=== PATIENT | male | born 1975 | race Caucasian/White ===

== ENCOUNTER 2017-05-10 12:55 | Inpatient (IN) ==
[2017-05-10] MEDS ORDERED: NITROGLYCERIN 0.4 MG SUBLINGUAL TABLET SL PRN (13:06)
[2017-05-10] MEDS ORDERED: ASPIRIN 81 MG CHEWABLE TABLET PO ONE (13:06)
--- NOTE | 2017-05-10 13:06 | Emergency Department Report ---
Asthma HPI - General Stated Complaint: Heart issues. sent by Dr Fairchild Time Seen by Provider: 05/10/17 13:05 Source: patient Mode of arrival: ambulatory Limitations: no limitations - History of Present Illness HPI Narrative: Patient is a 42-year-old male presents the ER for evaluation of chest tightness and shortness of breath. Patient is a 216 kg male, history of hypertension no history of smoking no cholesterol issues no prior heart issues. Patient stopped taking his blood pressure medication approximately 4 months ago due to financial issues. Patient's been doing relatively well at home, yesterday morning patient developed chest tightness and shortness of breath on exertion. This is waxed and waned whenever patient attempts to ambulate, goes away whenever he rests. Patient was primary medical doctor's office today was found to be hypoxic after ambulation although oxygen saturations did go up on rest, she was complaining of chest tightness at that time EKG showed a sinus tach rate of 102, no acute ST changes. Given the patient's totality of symptoms, as well as hypertension it was felt patient would be better served being evaluated in the emergency department. MD complaint: shortness of breath Onset (ago): day(s) Severity: severe - Related Data Home Medications Medication Instructions Recorded Confirmed HydroCHLOROthiazide [Hydrodiuril] 25 mg PO DAILY 05/10/17 05/10/17 Lisinopril [Prinivil] 40 mg PO DAILY 05/10/17 05/10/17 Tamsulosin [Flomax] 0.4 mg PO HS 05/10/17 05/10/17 guaiFENesin [Mucinex] 600 mg PO Q12H PRN 05/10/17 05/10/17 Allergies Allergy/AdvReac Type Severity Reaction Status Date / Time No Known Allergies Allergy Verified 05/10/17 13:07 Review of Systems Constitutional: Denies: fever, weakness ENT: Denies: throat pain, dental pain Cardiovascular: Reports: chest pain, dyspnea on exertion. Denies: palpitations Respiratory: Reports: dyspnea. Denies: cough, wheezes Gastrointestinal: Denies: abdominal pain, nausea, vomiting Genitourinary: Denies: dysuria, frequency Integumentary: Denies: alopecia, change in hair Neurological: Denies: headache, weakness, numbness Psychiatric: Denies: anxiety, depression Hematological/Lymphatic: Denies: easy bleeding PFSH Patient Stated Medical History Hypertension Yes Other Cardiology Yes: edema Clinic Medical History (Last Updated 04/13/17 @ 13:39 by Levon Gomez RN) Benign hypertension (Chronic Medical) Overactive bladder (Chronic Medical) Prediabetes (Chronic Medical) - Social History Smoking status: Never smoker Substance use type: does not use Alcohol intake frequency: does not drink Physical Exam - Limitations Limitations: no limitations - General General appearance: alert, in no apparent distress - Eye Eye exam: Present: PERRL, EOMI - ENT ENT exam: Present: normal oropharynx, mucous membranes moist, TM's normal bilaterally - Neck Neck exam: Present: full ROM, trachea midline - Chest Chest inspection: Present: symmetric chest wall rise. Absent: tenderness - Respiratory Respiratory exam: Present: normal lung sounds bilaterally. Absent: respiratory distress, wheezes, stridor - Cardiovascular Cardiovascular exam: Present: regular rate, tachycardia, normal heart sounds - Abdominal Exam Abdominal exam: Present: soft, normal bowel sounds. Absent: distention, tenderness - Skin Skin exam: Present: warm, dry - Neurological Exam Neurological exam: Present: alert, oriented X3 - Psychiatric Psychiatric exam: Present: normal affect, normal mood Course Vital Signs Temperature 98.0 F 05/10/17 12:56 Pulse Rate 125 H 05/10/17 12:56 Respiratory Rate 36 H 05/10/17 12:56 Blood Pressure 201/107 H 05/10/17 12:56 Pulse Oximetry 66 L 05/10/17 12:56 Temperature 98.0 F 05/10/17 12:56 Pulse Rate 114 H 05/10/17 15:00 Respiratory Rate 24 05/10/17 15:00 Blood Pressure 174/106 H 05/10/17 15:00 Pulse Oximetry 96 05/10/17 15:00 Dyspnea - MDM Narrative Medical decision making narrative: Acute [place] - Differential Diagnosis Differential diagnosis: Likely: COPD exacerbation - Medical Records Attestation: I reviewed the patient's medical records. - Lab Data Attestation: I reviewed the patient's lab results. Result diagrams: 05/10/17 13:24 05/10/17 13:24 Lab Results 05/10/17 05/10/17 05/10/17 Range/Units 13:24 13:24 13:24 WBC 11.0 (4.5-11.0) T/MM3 RBC 5.37 (4.50-5.90) M/MM3 Hgb 15.1 (13.5-17.5) GM/DL Hct 47.0 (41-53) % MCV 87.5 (80-100) UM3 MCH 28.1 (26-34) UUG MCHC 32.1 (31-37) GM/DL RDW Std Deviation 43.8 (36.9-50.2) FL Plt Count 228 (130-400) T/MM3 MPV 9.0 L (9.4-12.4) UM3 Immature Gran % (Auto) 0.7 H (0.0-0.5) % Neut % (Auto) 72.0 H (33-66) % Lymph % (Auto) 20.3 L (23-45) % [place] % (Auto) 5.7 (0-9.0) % Eos % (Auto) 0.8 (0-4) % Baso % (Auto) 0.5 (0-2) % Neut # (Auto) 7.9 H (1.8-7.7) T/MM3 Lymph # (Auto) 2.2 (1-4.8) T/MM3 [place] # (Auto) 0.6 (0-0.8) T/MM3 Eos # (Auto) 0.1 (0-0.5) T/MM3 Baso # (Auto) 0.1 (0-0.2) T/MM3 Abs Immat Gran (auto) 0.08 H (0.00-0.03) T/MM3 D-Dimer 1921 H (0-230) NG/ML Turbidity < 20 (0-20) Sodium 146 H (134-144) MEQ/L Potassium 3.7 (3.6-5) MEQ/L Chloride 103 (98-107) MEQ/L Carbon Dioxide 32 H (22-30) MEQ/L Anion Gap 11 (5-15) MEQ/L BUN 14.0 (9-20) MG/DL Creatinine 0.9 (0.8-1.5) MG/DL GFR Calculation 93 BUN/Creatinine Ratio 16 (6-26) RATIO Glucose 114 H (75-110) MG/DL Calculated Osmolality 283 H (261-280) MOSM/KG Calcium 9.7 (8.4-10.2) MG/DL Total Bilirubin 0.90 (0.20-1.30) MG/DL Icterus Index < 2 (0-7) AST 31 (17-59) U/L ALT 49 (21-72) U/L Alkaline Phosphatase 116 (38-126) U/L Troponin I 0.107 (0-0.12) ng/ml B-Natriuretic Peptide 1170 H (0-175) pg/mL Total Protein 8.7 H (6.3-8.2) G/DL Albumin 4.4 (3.5-5.0) G/DL Globulin 4.3 H (2.4-3.6) G/DL Albumin/Globulin Ratio 1.0 L (1.1-2.2) RATIO Specimen Hemolysis < 15 (0-25) - EKG Data EKG #1 EKG attestation: Yes: I reviewed and interpreted this EKG. EKG shows normal: sinus rhythm Rate [ED.COU.EKR]: tachycardia Rhythm: NSR [place]/QRS: normal When compared to previous EKG there are: no significant changes Disposition Clinical Impression: Pulmonary embolism Qualifiers: Pulmonary embolism type: other Chronicity: acute Disposition: 02 To [facility] [place] Care Condition: Stable Prescriptions: No Action Tamsulosin [Flomax] 0.4 mg PO HS guaiFENesin [Mucinex] 600 mg PO Q12H PRN PRN Reason: Prn Orders HydroCHLOROthiazide [Hydrodiuril] 25 mg PO DAILY Lisinopril [Prinivil] 40 mg PO DAILY Referrals: Italo Restrepo MD [Family Provider] - Time of Disposition: 15:16 - Seen By: physician
--- OUTSIDE RECORDS SUMMARY | 2017-05-10 13:15 | External Medical Summary | Referral Summary ---
:1975 Author Organization [facility] [place] [phone] Care Team Providers Name Role Phone Italo Restrepo Primary Care Physician Encounter VC Date(s): 01/21/15 - 01/21/15 [facility] [place] [phone] Discharge Diagnosis: Benign hypertension Discharge Disposition: 01-Home or Self Care Attending Physician: Italo Restrepo MD Admitting Physician: Italo Restrepo MD Vital Signs Most recent to oldest [Reference Range]: 1 Temperature Tympanic [36.6-38.1 degC] 36.8 degC (01/21/15 2:44 PM) Peripheral Pulse Rate [60-100 bpm] 84 bpm (01/21/15 2:44 PM) Respiratory Rate [14-20 br/min] 18 br/min (01/21/15 2:44 PM) Blood Pressure [90-140/60-90 mmHg] 150/86 mmHg *HI* (01/21/15 2:44 PM) Problem List Condition Effective Dates Status Health Status Informant Benign hypertension(Confirmed) Active Morbid obesity(Confirmed) Active patient Allergies, Adverse Reactions, Alerts No Known Medication Allergies Medications lisinopril-hydrochlorothiazide 20 mg-12.5 mg oral tablet 2 tabs, Oral, Daily, # 60 tabs, 11 Refill(s), Pharmacy: [id number] Start Date: 01/21/15 Stop Date: 01/16/16 Status: Ordered Results No data available for this section Immunizations No data available for this section Procedures No data available for this section Social History Social History Type Response Smoking Status Never smoker Assessment and Plan Extracted from: Title: Office Visit Note Author: Italo Restrepo MD Date: 01/21/15 Assessment/Plan Benign hypertension Plan:I want to discontinue the [id number] mg a day and start on lisinopril/HCTZ20/12.5 - 2 tablets daily. Follow-up in 6 weeks. The me know if you're having any pro blemswith that medication. We discussed the need to find a new primary care physician. Orders: lisinopril-hydrochlorothiazide, 2 tabs, Oral, Daily, # 60 tabs, 11 Refill(s), Pharmacy: [id number]
--- OUTSIDE RECORDS SUMMARY | 2017-05-10 13:15 | External Medical Summary | Referral Summary ---
:1975 Author Organization [facility] [place] [phone] Care Team Providers Name Role Phone Frank Hebert Primary Care Physician Encounter VC Date(s): 10/21/15 - 10/21/15 [facility] [place] [phone] [place] Discharge Diagnosis: Morbid obesity Discharge Diagnosis: Prediabetes Discharge Diagnosis: Benign hypertension Discharge Diagnosis: Overactive bladder Discharge Diagnosis: Need for vaccination Discharge Disposition: 01-Home or Self Care Attending Physician: Leatha Ponce APRN Admitting Physician: Leatha Ponce APRN Vital Signs Most recent to oldest [Reference Range]: 1 Temperature Tympanic [36.6-38.1 degC] 36.4 degC *LOW* (10/21/15 8:25 AM) Peripheral Pulse Rate [60-100 bpm] 88 bpm (10/21/15 8:25 AM) Respiratory Rate [14-20 br/min] 16 br/min (10/21/15 8:25 AM) Blood Pressure [90-140/60-90 mmHg] 164/106 mmHg *HI* (10/21/15 8:25 AM) Problem List Condition Effective Dates Status Health Status Informant Benign hypertension(Confirmed) Active Morbid obesity(Confirmed) Active patient Allergies, Adverse Reactions, Alerts No Known Medication Allergies Medications Flomax 0.4 mg oral capsule 0.4 mg 1 caps, Oral, Bedtime (once a day), # 90 caps, 0 Refill(s), Pharmacy: [id number],1 caps Oral Bedtime (once a day) Start Date: 10/21/15 Status: Orderedlisinopril-hydrochlorothiazide 20 mg-12.5 mg oral tablet 2 tabs, Oral, Daily, # 60 tabs, 11 Refill(s), Pharmacy: [id number] Start Date: 01/21/15 Stop Date: 01/16/16 Status: Orderedphentermine 37.5 mg oral tablet 37.5 mg 1 tabs, Oral, Daily, # 30 tabs, 0 Refill(s) Start Date: 10/21/15 Status: Ordered Results Chemistry Most recent to oldest [Reference Range]: 1 Sodium Lvl [135-144 mEq/L] 141 mEq/L (10/21/15 9:15 AM) Potassium Lvl [3.5-5.2 mEq/L] 4.8 mEq/L (10/21/15 9:15 AM) Chloride [99-111 mEq/L] 102 mEq/L (10/21/15 9:15 AM) CO2 [23-31 mEq/L] 31 mEq/L (10/21/15 9:15 AM) AGAP [3-20] 8 (10/21/15 9:15 AM) BUN [9-21 mg/dL] 14 mg/dL (10/21/15 9:15 AM) Glucose Lvl [70-99 mg/dL] 110 mg/dL *HI* (10/21/15 9:15 AM) Creatinine Lvl [0.72-1.25 mg/dL] 0.78 mg/dL (10/21/15 9:15 AM) eGFR [>60 mL/min] >60 mL/min 1 (10/21/15 9:15 AM) Calcium Lvl [8.9-10.5 mg/dL] 9.2 mg/dL (10/21/15 9:15 AM) Albumin Lvl [3.5-5.0 gm/dL] 4.0 gm/dL (10/21/15 9:15 AM) Total Protein [6.1-7.7 gm/dL] 7.2 gm/dL 2 (10/21/15 9:15 AM) Globulin [1.8-4.0 gm/dL] 3.2 gm/dL (10/21/15 9:15 AM) ALT [0-55 U/L] 70 U/L *HI* (10/21/15 9:15 AM) AST [5-34 U/L] 45 U/L 3 *HI* (10/21/15 9:15 AM) Alk Phos [40-150 U/L] 93 U/L (10/21/15 9:15 AM) Bili Total [0.2-1.2 mg/dL] 1.1 mg/dL (10/21/15 9:15 AM) Chol [0-199 mg/dL] 151 mg/dL (10/21/15 9:15 AM) Trig [0-149 mg/dL] 124 mg/dL (10/21/15 9:15 AM) HDL [40-84 mg/dL] 46 mg/dL (10/21/15 9:15 AM) LDL [0-130 mg/dL] 80 mg/dL (10/21/15 9:15 AM) VLDL Cholesterol [0-28 mg/dL] 25 mg/dL (10/21/15 9:15 AM) Cardiac Risk [0.0-5.7] 3.3 (10/21/15 9:15 AM) TSH with Reflex Free T4 [0.35-4.94] 2.48 (10/21/15 9:15 AM) Hgb A1c [4.1-5.6 %] 6.1 % *HI* (10/21/15 9:15 AM) eAvg Glucose 128.4 mg/dL (10/21/15 9:15 AM) 1Result Comment: Multiply eGFR results by 1.21 for race.2Result Comment: Please note new reference range for adult Protein.3Result Comment: Specimen slightly hemolyzed. LDH, AST and Direct Bilirubin may be affected.Urinalysis Most recent to oldest [Reference Range]: 1 UA Color Yellow (10/21/15 9:19 AM) UA Appear Clear (10/21/15 9:19 AM) UA pH [5.0-8.0] 6.0 (10/21/15 9:19 AM) UA Leuk Est [Negative] Negative (10/21/15 9:19 AM) UA Nitrite [Negative] Negative (10/21/15 9:19 AM) UA Protein [Negative] Negative (10/21/15 9:19 AM) UA Glucose [Negative] Negative (10/21/15 9:19 AM) UA Ketones [Negative] Negative (10/21/15 9:19 AM) UA Urobilinogen [<=1.0 mg/dL] 0.2 mg/dL (10/21/15 9:19 AM) UA Bili [Negative] Negative (10/21/15 9:19 AM) UA Blood [Negative] Negative (10/21/15 9:19 AM) UA Spec Grav [1.003-1.030] 1.025 (10/21/15 9:19 AM) Type Clean Catch (10/21/15 9:19 AM) Immunizations Vaccine Date Refusal Reason tetanus/diphth/pertuss (Tdap) adult/adol 10/21/15 pneumococcal 23-polyvalent vaccine 10/21/15 Procedures Procedure Date Related Diagnosis Body Site Collection of venous blood by venipuncture 10/21/15 Social History Social History Type Response Smoking Status Never smoker Assessment and Plan Extracted from: Title: Office Visit Note-wt Author: Leatha Ponce APRN Date: 10/21/15 Assessment/Plan 1.Benign hypertension Restart lisinopril/hydrochlorothiazide. Requested check his blood pressures periodically. Goal blood pressures less than 140/90. Labs as ordered. Due for Boostrix and pneumococcal vaccine. Counseled on Boostrix. Given by nursing. Ordered: Comprehensive Metabolic Panel Lipid Panel TSH with Reflex Free T4 2.Morbid obesity We spent quite a time discussing weight loss treatment options. Information provided for [facility]. Encouraged him to strongly consider that. He does n ot have money now to consider bariatric surgery. Start phentermine 37.5 mg dailyas he is working toward theinitiation of the weight loss program. Encouraged him to work on increasing his physica l activitygradually. Portion control. Side effects of medication discussed. We'll discuss referral to sleep medicine at next follow-up visit in one month. Ordered: Hemoglobin A1c TSH with Reflex Free T4 3.Overactive bladder Start Flomax 0.4 mgby mouth daily at bedtime. Avoid caffeine and alcohol as they bladder irritants. 4.Prediabetes Check lab. Has family history for diabetes. May want to consider startingprediabetessuch as Victozawhich may also benefit his weight loss efforts. Ordered: Hemoglobin A1c Need for vaccination Orders: phentermine, 37.5 mg 1 tabs, Oral, Daily, # 30 tabs, 0 Refill(s) tamsulosin, 0.4 mg 1 caps, Oral, Bedtime (once a day), # 90 caps, 0 Refill(s) , Pharmacy: [id number], 1 caps Oral Bedtime (once a day)
--- OUTSIDE RECORDS SUMMARY | 2017-05-10 13:15 | External Medical Summary | Referral Summary ---
:1975 [facility] [address] [place] [address] [place] [phone] Care Team Providers Name Role Phone Frank Hebert Primary Care Physician Encounter VC Date(s): 01/07/15 - 01/07/15 [facility] [place] [phone] [place] Discharge Diagnosis: Dermatitis Discharge Diagnosis: Adult BMI 60.0-69.9 kg/sq m Discharge Diagnosis: Hypertension Discharge Disposition: 01-Home or Self Care Attending Physician: Italo Restrepo MD Admitting Physician: Italo Restrepo MD Vital Signs Most recent to oldest [Reference Range]: 1 Temperature Tympanic [36.6-38.1 degC] 37.1 degC (01/07/15 4:18 PM) Peripheral Pulse Rate [60-100 bpm] 86 bpm (01/07/15 4:18 PM) Blood Pressure [90-140/60-90 mmHg] 180/100 mmHg *HI* (01/07/15 4:18 PM) Problem List Condition Effective Dates Status Health Status Informant Benign hypertension(Confirmed) Active Morbid obesity(Confirmed) Active patient Allergies, Adverse Reactions, Alerts No Known Medication Allergies Medications lisinopril-hydrochlorothiazide 20 mg-12.5 mg oral tablet 2 tabs, Oral, Daily, # 60 tabs, 11 Refill(s), Pharmacy: [id number] Start Date: 01/21/15 Stop Date: 01/16/16 Status: Orderedphentermine 37.5 mg oral tablet 37.5 mg 1 tabs, Oral, Daily, # 30 tabs, 0 Refill(s) Start Date: 03/14/15 Status: Ordered Results Chemistry Most recent to oldest [Reference Range]: 1 Sodium Lvl [135-144 mEq/L] 143 mEq/L (01/07/15 4:55 PM) Potassium Lvl [3.5-5.2 mEq/L] 4.3 mEq/L (01/07/15 4:55 PM) Chloride [99-111 mEq/L] 106 mEq/L (01/07/15 4:55 PM) CO2 [23-31 mEq/L] 30 mEq/L (01/07/15 4:55 PM) AGAP [3-20] 7 (01/07/15 4:55 PM) BUN [9-21 mg/dL] 12 mg/dL (01/07/15 4:55 PM) Glucose Lvl [70-99 mg/dL] 111 mg/dL *HI* (01/07/15 4:55 PM) Creatinine Lvl [0.72-1.25 mg/dL] 0.84 mg/dL (01/07/15 4:55 PM) eGFR [>60 mL/min] >60 mL/min 1 (01/07/15 4:55 PM) Calcium Lvl [8.9-10.5 mg/dL] 9.4 mg/dL (01/07/15 4:55 PM) Hgb A1c [4.1-5.6 %] 5.9 % *HI* (01/07/15 4:55 PM) eAvg Glucose 122.6 mg/dL (01/07/15 4:55 PM) 1Result Comment: Multiply eGFR results by 1.21 for race. Immunizations No data available for this section Procedures Procedure Date Related Diagnosis Body Site Collection of venous blood by venipuncture 01/07/15 Collection of venous blood by venipuncture 01/07/15 Collection of venous blood by venipuncture 01/07/15 Social History Social History Type Response Smoking Status Never smoker Assessment and Plan Extracted from: Title: Office Visit Note Author: Italo Restrepo MD Date: 01/07/15 Assessment/Plan Adult BMI 60.0-69.9 kg/sq m Ordered: Hemoglobin A1c Dermatitis Hypertension Plan: I'm going to order lisinopril but I don't want you to start until tomorrow. I'd like to see what your BUN/creatinine creatinine are first. I wants to follow-up in 2 weeks. Use the triamcin olone cream on the rash. Call if you're having any problems. Ordered: Basic Metabolic Panel Orders: lisinopril, 30 mg 1 tabs, Oral, Daily, # 90 tabs, 3 Refill(s), Pharmacy: [id number] triamcinolone topical, 1 jane, Topical, TID, X 14 days, # 30 g, 0 Refill(s), Pharmacy: [id number]
--- OUTSIDE RECORDS SUMMARY | 2017-05-10 13:15 | External Medical Summary | Referral Summary ---
:1975 Author Organization [facility] [place] [phone] Care Team Providers Name Role Phone Frank Hebert Primary Care Physician Encounter VC Date(s): 03/14/15 - 03/14/15 [facility] [place] [phone] [place] Discharge Diagnosis: Benign hypertension Discharge Diagnosis: Morbid obesity Discharge Disposition: 01-Home or Self Care Attending Physician: Frank Hebert MD Admitting Physician: Frank Hebert MD Vital Signs Most recent to oldest [Reference Range]: 1 Temperature Tympanic [36.6-38.1 degC] 37.2 degC (03/14/15 4:20 PM) Peripheral Pulse Rate [60-100 bpm] 104 bpm *HI* (03/14/15 4:20 PM) Respiratory Rate [14-20 br/min] 16 br/min (03/14/15 4:20 PM) Blood Pressure [90-140/60-90 mmHg] 172/104 mmHg *HI* (03/14/15 4:20 PM) Problem List Condition Effective Dates Status Health Status Informant Benign hypertension(Confirmed) Active Morbid obesity(Confirmed) Active patient Allergies, Adverse Reactions, Alerts No Known Medication Allergies Medications lisinopril-hydrochlorothiazide 20 mg-12.5 mg oral tablet 2 tabs, Oral, Daily, # 60 tabs, 11 Refill(s), Pharmacy: [id number] Start Date: 01/21/15 Stop Date: 01/16/16 Status: Orderedphentermine 37.5 mg oral tablet 37.5 mg 1 tabs, Oral, Daily, # 30 tabs, 0 Refill(s) Start Date: 03/14/15 Status: Ordered Results No data available for this section Immunizations No data available for this section Procedures No data available for this section Social History Social History Type Response Smoking Status Never smoker Assessment and Plan Extracted from: Title: Office Visit Note Author: Frank Hebert MD Date: 03/14/15 Assessment/Plan Benign hypertension I've asked him to take his lisinopril HCT twice daily one morning and one midafternoon. Recheck blood pressure in 1 month. Ordered: Office Visit Level 3 Est 37190 Morbid obesity Talked about various options including. Surgery as well as medical treatment. He like to try medication and will start him on some phentermine 37.5 mg daily recheck in 1 month. I think he should probably see a sleep specialist for a sleep apnea evaluation as well. Ordered: Office Visit Level 3 Est 41157 Orders: phentermine, 37.5 mg 1 tabs, Oral, Daily, # 30 tabs, 0 Refill(s)
--- OUTSIDE RECORDS SUMMARY | 2017-05-10 13:15 | External Medical Summary | Referral Summary ---
:1975 Author Organization [facility] [place] [phone] Care Team Providers Name Role Phone Frank Hebert Primary Care Physician Encounter VC Date(s): 11/25/15 - 11/25/15 [facility] [place] [phone] [place] Discharge Diagnosis: Overactive bladder Discharge Diagnosis: Prediabetes Discharge Diagnosis: Morbid obesity Discharge Diagnosis: Benign hypertension Discharge Disposition: 01-Home or Self Care Attending Physician: Leatha Ponce APRN Admitting Physician: Leatha Ponce APRN Vital Signs Most recent to oldest [Reference Range]: 1 Temperature Tympanic [36.6-38.1 degC] 36.9 degC (11/25/15 4:19 PM) Peripheral Pulse Rate [60-100 bpm] 88 bpm (11/25/15 4:19 PM) Blood Pressure [90-140/60-90 mmHg] 152/90 mmHg *HI* (11/25/15 4:19 PM) Problem List Condition Effective Dates Status Health Status Informant Benign hypertension(Confirmed) Active Overactive bladder(Confirmed) Active Prediabetes(Confirmed) Active Morbid obesity(Confirmed) Active patient Allergies, Adverse Reactions, Alerts No Known Medication Allergies Medications Flomax 0.4 mg oral capsule 0.4 mg 1 caps, Oral, Bedtime (once a day), # 90 caps, 0 Refill(s), Pharmacy: [facility],1 caps Oral Bedtime (once a day) Start Date: 10/21/15 Status: Orderedlisinopril-hydrochlorothiazide 20 mg-12.5 mg oral tablet 2 tabs, Oral, Daily, # 60 tabs, 11 Refill(s), Pharmacy: [facility] Start Date: 01/21/15 Stop Date: 01/16/16 Status: Orderedphentermine 37.5 mg oral tablet 37.5 mg 1 tabs, Oral, Daily, # 30 tabs, 0 Refill(s) Start Date: 11/25/15 Status: Ordered Results No data available for this section Immunizations Vaccine Date Refusal Reason tetanus/diphth/pertuss (Tdap) adult/adol 10/21/15 pneumococcal 23-polyvalent vaccine 10/21/15 Procedures No data available for this section Social History Social History Type Response Smoking Status Never smoker Assessment and Plan Extracted from: Title: Office Visit Note-wt Author: Laetha Ponce ERADICATOR Date: 11/25/15 Assessment/Plan 1.Morbid obesity He has had some successful weight loss. He has made some dietary changes. Phentermine working well forappetite suppression. Continue. We discussed avoiding losing weig ht too fast and food deprivation. Discussed the importance of eating protein throughout the day not just fruits and vegetables. Discussed these quick protein choices. We discussed portion control, keeping a food diary. I would like him to eat at least 2000 zulema a day. Continue to drink lots of water. Encouraged him to try to increase his physical activity. Discussedbiking, swimming, stella ght lifting, elliptical as options. Plan follow-up in one month or sooner if needs arise. 2.Benign hypertension Continue same. Continues to be slightly elevated today. We will recheck in one month. Blood pressures have been less than 140 /90. 3.Overactive bladder Continue Flomax. Orders: phentermine, 37.5 mg 1 tabs, Oral, Daily, # 30 tabs, 0 Refill(s)
--- OUTSIDE RECORDS SUMMARY | 2017-05-10 13:16 | External Medical Summary | Referral Summary ---
:1975 Author Organization [facility] [place] [phone] Care Team Providers Name Role Phone Italo Restrepo Primary Care Physician Encounter VC Date(s): 01/07/15 - 01/07/15 [facility] [place] [phone]- Discharge Diagnosis: Dermatitis Discharge Diagnosis: Adult BMI [...] Condition Effective Dates Status Health Status Informant Morbid obesity(Confirmed) Active patient Allergies, Adverse Reactions, Alerts No Known Medication Allergies Medications lisinopril 30 mg oral tablet 30 mg 1 tabs, Oral, Daily, # 90 tabs, 3 Refill(s), Pharmacy: [facility] Start Date: 01/07/15 Stop Date: 01/02/16 Status: Orderedtriamcinolone 0.1% topical cream 1 jane, Topical, TID, X 14 days, # 30 g, 0 Refill(s), Pharmacy: [facility] Start Date: 01/07/15 Stop Date: 01/21/15 Status: Ordered Results Chemistry Most recent to [...] Daily, # 90 tabs, 3 Refill(s), Pharmacy: [id number] triamcinolone topical, 1 jane, Topical, TID, X 14 days, # 30 g, 0 Refill(s), Pharmacy: [id number]
--- OUTSIDE RECORDS SUMMARY | 2017-05-10 13:16 | External Medical Summary | Continuity of Care Document ---
:1975 Author Organization Via [facility] Allergies Active Description Code Type Severity Reaction Onset Reported/ Identified Relationship Clinical to Patient Status Yes No Known NKMA N/A N/A 01/07/2015 Medication Allergies Medications There is no data. Problems Date Dx Attending Type Code Diagnosis Diagnosed By Coded 10/21/2015 Leatha Ponce Z23 Encounter for D immunization 10/21/2015 Leatha Ponce E66.01 Morbid (severe) D obesity due to excess calories 10/21/2015 Leatha Ponce I10 Essential (primary) D hypertension 10/21/2015 Leatha Ponce N32.81 Overactive bladder D 10/21/2015 Leatha Ponce R73.09 Other abnormal D glucose 11/25/2015 Leatha Ponce E66.01 Morbid (severe) D obesity due to excess calories 11/25/2015 Leatha Ponce I10 Essential (primary) D hypertension 11/25/2015 Leatha Ponce N32.81 Overactive bladder D 11/25/2015 Leatha Ponce R73.09 Other abnormal D glucose 06/09/2016 Leatha Ponce E66.01 Morbid (severe) D obesity due to excess calories 06/09/2016 Leatha Ponce I10 Essential (primary) D hypertension 06/09/2016 Leatha Ponce R73.03 Prediabetes D 06/09/2016 Leatha Ponce L30.9 Dermatitis, D unspecified 06/09/2016 Leatha Ponce R74.8 Abnormal levels of D other serum enzymes Procedures Code [place] [address] Collection of 10/21/2015 venous blood by venipuncture 05541 Comprehensive 10/21/2015 metabolic panel This panel must include the following: Albumin (76582) Bilirubin, total (90045) Calcium, total (97757) Carbon dioxide (bicarbonate) (90003) Chloride (16032) Creatinine (8 03587 Lipid panel This 10/21/2015 panel must include the following: Cholesterol, serum, total (91971) Lipoprotein, direct measurement, high density cholesterol (HDL cholesterol) (01721) Triglycerides (90528)..... 32374 Urinalysis, by 10/21/2015 dip stick or tablet reagent for bilirubin, glucose, hemoglobin, ketones, leukocytes, nitrite, pH, protein, specific gravity, urobilinogen, any number of these constituents; automated, w 77617 Hemoglobin; 10/21/2015 glycosylated (A1C).. 23934 Thyroid 10/21/2015 stimulating hormone (TSH) 38698 Immunization 10/21/2015 administration (includes percutaneous, intradermal, subcutaneous, or intramuscular injections); 1 vaccine (single or combination vaccine/toxoid).. 96597 Immunization 10/21/2015 administration (includes percutaneous, intradermal, subcutaneous, or intramuscular injections); each additional vaccine (single or combination vaccine/toxoid) (List separately in addition 99764 Tetanus, 10/21/2015 diphtheria toxoids and acellular pertussis vaccine (Tdap), when administered to individuals 7 years or older, for intramuscular use 07097 Pneumococcal 10/21/2015 polysaccharide vaccine, 23-valent (PPSV23), adult or immunosuppressed patient dosage, when administered to individuals 2 years or older, for subcutaneous or intramuscular use 44994 Office or other 10/21/2015 outpatient visit for the evaluation and management of an established patient, which requires at least 2 of these 3 harris components: A detailed history; A detailed examination; Medical d 11528 Office or other 11/25/2015 outpatient visit for the evaluation and management of an established patient, which requires at least 2 of these 3 harris components: An expanded problem focused history; An expanded prob 48644 Office or other 06/09/2016 outpatient visit for the evaluation and management of an established patient, which requires at least 2 of these 3 harris components: A detailed history; A detailed examination; Medical d Results Test Result Range Hemoglobin A1C - 10/21/15 09:15 Hemoglobin A1C 6.1 % 4.1-5.6 Estimated Average Glucose - 10/21/15 09:15 Estimated Average Glucose 128.4 mg/dL Comprehensive Metabolic Panel (CMP) - 10/21/15 09:15 Albumin 4.0 g/dL 3.5-5.0 Alkaline Phosphatase 93 U/L 40-150 ALT (SGPT) 70 U/L 0-55 Anion Gap 8 NA 3-20 AST (SGOT) 45 U/L 5-34 Bilirubin Total 1.1 mg/dL 0.2-1.2 BUN 14 mg/dL 9-21 Calcium 9.2 mg/dL 8.9-10.5 Chloride 102 mEq/L 99-111 CO2 31 mEq/L 23-31 Creatinine 0.78 mg/dL 0.72-1.25 Globulin 3.2 g/dL 1.8-4.0 Glucose 110 mg/dL 70-99 Potassium 4.8 mEq/L 3.5-5.2 Protein 7.2 g/dL 6.1-7.7 Sodium 141 mEq/L 135-144 Lipid Panel - 10/21/15 09:15 Cardiac Risk 3.3 0.0-5.7 Cholesterol 151 mg/dL 0-199 HDL Cholesterol 46 mg/dL 40-84 LDL Cholesterol 80 mg/dL 0-130 Triglycerides 124 mg/dL 0-149 VLDL Cholesterol 25 mg/dL 0-28 eGFR - 10/21/15 09:15 eGFR >60 mL/min >60 TSH with Reflex Free T4 - 10/21/15 09:15 TSH with Reflex Free T4 2.48 uIU/mL 0.35-4.94 Urinalysis with reflex microscopic - 10/21/15 09:19 Appearance Clear NA Bilirubin Negative NA Negative Blood Negative NA Negative Color Yellow NA Glucose, Urine Negative NA Negative Ketones Negative NA Negative Leukocyte Esterase Negative NA Negative Nitrites Negative NA Negative pH 6.0 NA 5.0-8.0 Protein Negative NA Negative Specific Tererro 1.025 NA 1.003-1.030 UA Collection type Clean Catch NA Urobilinogen 0.2 mg/dL <=1.0 Encounters ACCT No. Visit Discharge Status Pt. Type Provider Facility Loc./Unit Complaint Date/Time [id number] 06/30/2013 06/30/2013 CLS Outpatient 10:57:00 23:59:59 [id number] 06/09/2016 06/09/2016 DIS Outpatient Kris Via [facility] Dominic med check 61 08:00:00 23:59:00 , Leatha [facility] weight Clinic check [id number] 11/25/2015 11/25/2015 DIS Outpatient Kris [facility] TCPA 16 16:10:00 23:59:00 , Leatha [place] weight Clinic check and htn [id number] 10/21/2015 10/21/2015 DIS Outpatient Kris [facility] weight 49 08:15:00 23:59:00 , Leatha [place] check and Clinic med check [id number] 03/14/2015 03/14/2015 DIS Outpatient Anup, Via [facility] new pt to 74 15:58:00 23:59:00 Frank [place] est was Clinic lauro [id number] 01/21/2015 01/21/2015 DIS Outpatient Lauro, [facility] 2 WK JEREMY 18 14:31:00 23:59:00 Italo [place] HTN Clinic [id number] 01/07/2015 01/07/2015 DIS Outpatient Lauro, Via [facility] RASH 39 15:42:00 23:59:00 Italo [facility] Clinic
--- OUTSIDE RECORDS SUMMARY | 2017-05-10 13:16 | External Medical Summary | Referral Summary ---
:1975 Author [facility] Address [address] [place] [address] [place] [phone] Care Team Providers Name Role Phone Anup Frank Bhatia Primary Care Physician Encounter VC Date(s): 01/21/15 - 01/21/15 [facility] [address] [place] [phone] [place] Discharge Diagnosis: [...] Daily, # 60 tabs, 11 Refill(s), Pharmacy: [id number] Start Date: 01/21/15 Stop Date: 01/16/16 Status: [...] Benign hypertension Plan:I want to discontinue the [id number] mg a day and start on lisinopril/HCTZ20/12.5 - 2 tablets daily. Follow-up in 6 weeks. The me know if you're having any pro blemswith that medication. We discussed the need to find a new primary care physician. Orders: lisinopril-hydrochlorothiazide, 2 tabs, Oral, Daily, # 60 tabs, 11 Refill(s), Pharmacy: [id number]
[2017-05-10] MEDS ORDERED: HYDRALAZINE 20 MG/ML INJECTION IVP ONE (13:17)
[2017-05-10] MEDS: SALINE FLUSH 10ml SYRINGE IVF PRN (13:36)
--- NOTE | 2017-05-10 13:57 | XRay Report ---
Indication: chest tightness, shortness of air PROCEDURE: XR chest 1V: Encounter: Initial Comparison: 05/10/2017 Findings: Heart size is normal. The lungs are clear. There is no focal opacity to suggest atelectasis or pneumonia. No mediastinal or hilar adenopathy. No pleural effusion. There is no significant tortuosity of the descending thoracic aorta. There is moderate degenerative disc disease of the thoracic spine. IMPRESSION: No acute process. .
[2017-05-10] MEDS ORDERED: IOHEXOL 350mg/ml 75ml INJECTION ONE (14:14)
[2017-05-10] MEDS ORDERED: SALINE FLUSH 10ml SYRINGE ONE (14:14)
--- NOTE | 2017-05-10 14:50 | CT Scan Report ---
Indication: elevated d-dimer tachypnea hypertensive PROCEDURE: CT angio pulm emboli: Encounter: Initial Comparison: None. Technique: Following rapid administration of intravenous contrast, multiple contiguous helical axial slices were obtained from the level of the diaphragm to the level the thoracic inlet. This volumetric data set then served as the basis for further 2 dimensional MIP reconstructions in sagittal and coronal planes. Automated Exposure Control and Iterative Reconstruction dose reducing techniques were utilized. FINDINGS: The degree of contrast enhancement is not optimal for detecting pulmonary emboli. There is patchy groundglass opacities in the anterior right upper lobe in the same area as there are some dense calcified granulomas which suggests granulomatous disease also be acute on top of chronic disease. There is no definite ronen mediastinal or hilar adenopathy. No pleural effusion. The trachea and mainstem bronchi are patent. There is no dense consolidation or pneumothorax. There are no masses or nodules seen in the lung parenchyma. There is no axillary, hilar, or mediastinal lymphadenopathy. The heart size is normal. There is no pericardial effusion. The visualized portions of the thoracic aorta and major branch vessels of the aortic arch fills with contrast homogenously and are unremarkable. The visualized portions of the upper abdominal structures are grossly unremarkable. The visualized bones are unremarkable. IMPRESSION: Nonspecific groundglass opacity in the anterior right lung suggesting acute interstitial pneumonitis. Calcific density calcified granulomas and right hilar granulomas suggesting prior granulomatous disease. Insufficient pulmonary artery contrast to exclude or confirm pulmonary embolus. .
[2017-05-10] MEDS ORDERED: ENOXAPARIN 150 MG/ML INJECTION SQ ONE (15:10)
[2017-05-10] MEDS ORDERED: ENOXAPARIN 80 MG/0.8 ML INJECTION SQ ONE (15:12)
--- NOTE | 2017-05-10 15:37 | History & Physical Report ---
History of Present Illness Date: 05/10/17 Chief complaint: dyspnea HPI: Patient is a 42-year-old male who presented to primary care at [facility] and was seen by Leatha Sosa for dyspnea and chest tightness. He was found to be tachycardic and hypoxic at the clinic. He was directed to [facility] emergency room for acute evaluation. On arrival, patient's heart rate was 125-130, room air saturation 66%. Patient was found to have a significantly elevated d-dimer at 1921. A CT of the chest was obtained, however, there was not adequate dye utilized. Therefore pulmonary thrombus could not be excluded. Patient does have a known history of hypertension, however, lost his job as well as his medication coverage and has been off all antihypertensives for the past 4 months. Given continued hypoxia as well as concern for acute thrombus. The hospitalist services were contacted and accepted patient for inpatient admission for further evaluation and treatment. Patient is seen initially while in the emergency room. He is alert, oriented And pleasant. He describes somewhat sudden onset of shortness of breath and chest pain that started yesterday. He notes that the dyspnea and chest tightness are worse with exertion, however, seemed to improve at rest. Denies any recent illnesses including fevers, chills, abdominal pain or other GI complaints. Past Medical History Benign hypertension Overactive bladder Chronic lower extremity edema Prediabetes Hx of renal calculi Surgical History: Ankle surgery- In high school Family History Updates: Father- Cancer, CVA. Mother- HTN - Social History Smoking status: Never smoker Substance use type: does not use Alcohol intake frequency: does not drink Housing: house Current occupational status: unemployed Current residence: Apartment/Private Home Social history: PCP Leatha Sosa Medications Home Medications Medication Instructions Recorded Confirmed Type HydroCHLOROthiazide [Hydrodiuril] 25 mg PO DAILY 05/10/17 05/10/17 History Lisinopril [Prinivil] 40 mg PO DAILY 05/10/17 05/10/17 History Tamsulosin [Flomax] 0.4 mg PO HS 05/10/17 05/10/17 History guaiFENesin [Mucinex] 600 mg PO Q12H PRN 05/10/17 05/10/17 History Allergies Allergy/AdvReac Type Severity Reaction Status Date / Time No Known Allergies Allergy Verified 05/10/17 13:07 Exam Vital Signs: Temperature 98.0 F 05/10/17 12:56 Pulse Rate 114 H 05/10/17 15:00 Respiratory Rate 24 05/10/17 15:00 Blood Pressure 174/106 H 05/10/17 15:00 Pulse Oximetry 96 05/10/17 15:00 Telemetry Rhythm: Sinus Tachycardia - Constitutional Present: no acute distress, well nourished, well developed - Routine HEENT Exam Eye: Present: EOMI ENT: Present: mucous membranes moist, dentition normal - Routine Respiratory Exam Present: CTA bilaterally. Absent: wheezes - Routine Cardiovascular Exam Present: RRR, S1, S2. Absent: murmur - Routine Abdominal Exam Present: soft, normoactive bowel sounds, non distended. Absent: tenderness - Routine Extremities Exam Present: edema (1+ (chronic)) - Routine Back/Spine/Pelvis Exam Back/Spine: Present: full ROM - Routine Skin Exam Present: intact, dry, warm - Routine Neurological Exam Present: alert, oriented X3, CN II-XII intact, moving all extremities - Routine Psychiatric Exam Present: normal affect, cooperative Results - Labs CBC & Chem 7: 05/10/17 13:24 05/10/17 13:24 Assessment and Plan (1) Acute respiratory failure with hypoxia Current visit: Yes Status: Acute (2) Elevated d-dimer Current visit: Yes Status: Acute Assessment and Plan: Impression Acute respiratory failure with hypoxia. Elevated d-dimer- 1921 Concern for pulmonary thrombus Hypernatremia- POA Poorly controlled hypertension Morbid obesity- BMI 64 Plan Admit patient Inpatient status under care of Dr. Pittman for acute hypoxia, suspect thrombus Continue on oxygen to maintain adequate saturations Started on treatment dose of Lovenox 215mg SQ BID. Will plan to initiate Coumadin per pharmacy protocol as cost will be a barrier. IV NS at 100ml/hr for hydration Will repeat CT of the chest tomorrow given high suspicion of Pulmonary thrombus Monitor patient on cardiac telemetry and obtain serial troponin 3 Resume Lisinopril 40 mg daily as this was his previous dose. Add IV hydralazine PRN for sustained systolic blood pressure 170. Will obtain Hgb A1C for laboratory completeness Recheck BMP tomorrow to follow electrolytes and renal function Further orders and plan of care discussed with attending, Dr Pittman At time of discharge medical care will return to PCP Leatha Ponce- NHI DVT Prophylaxis: Lovenox Resuscitation Status: Full Code - Physician Narrative Physician: Nita Pittman MD Narrative: Date: 05/10/17 Time: 1814 I have independently evaluated and examined this patient. I reviewed the chart, the patient's history, and the [employer]PA's documented findings as above. We discussed and formulated the assessment and plan as above with additions as below: Mr. Bojorquez presented with acute exertional dyspnea and chest tightness, hypoxia , tachycardia, and tachypnea as described above. D-dimer was elevated but CTA was nondiagnostic due to patient's vomiting with dye administration and possibly suboptimal dye volume administration. The patient denies change in chronic swelling in his lower extremities, leg pain, injuries to his legs, past history of DVT or PE, or family history of DVT. He's had no recent air travel but did have a 3-4 hour car trip approximately 2 weeks ago. NAD, alert Respirations nonlabored at rest, good airflow, breath sounds clear; oxygen saturation 93% on 2.5 L supplemental O2 by nasal cannula Regular rhythm, S1-S2 Bilateral lower extremity edema with pitting +3, questionable cord palpable lower right calf not extending into the popliteal fossa Chest x-ray reviewed by myself-unremarkable; CT chest obtained earlier reviewed by myself demonstrates minor patchy groundglass infiltrates in the anterior right upper lobe but study inadequate to determine if PE present. EKG reviewed by myself-sinus tachycardia, possible old inferior PR, no acute changes. Bilateral lower extremity venous Dopplers to be obtained, anticipate repeat CTA chest tomorrow for diagnostic purposes. Hydrate overnight; empiric anticoagulation in addition to serial troponins. Hospital Course Summary Disclaimer: The visit summary below is not to be considered part of the above Progress Note. Hospital Course: Impression Acute respiratory failure with hypoxia. Elevated d-dimer- 1921 Concern for pulmonary thrombus Hypernatremia- POA Poorly controlled hypertension Morbid obesity- BMI 64 Plan Admit patient Inpatient status under care of Dr. Pittman for acute hypoxia, suspect thrombus Continue on oxygen to maintain adequate saturations Started on treatment dose of Lovenox 215mg SQ BID. Will plan to initiate Coumadin per pharmacy protocol as cost will be a barrier. IV NS at 100ml/hr for hydration Will repeat CT of the chest tomorrow given high suspicion of Pulmonary thrombus Monitor patient on cardiac telemetry and obtain serial troponin 3 Resume Lisinopril 40 mg daily as this was his previous dose. Add IV hydralazine PRN for sustained systolic blood pressure 170. Will obtain Hgb A1C for laboratory completeness Recheck BMP tomorrow to follow electrolytes and renal function Bilateral venous Dopplers being obtained. At time of discharge medical care will return to PCP Leatha Loza APRN
[2017-05-10] MEDS ORDERED: WARFARIN - PHARMACY CONSULT MC ONE (15:45)
[2017-05-10 15:47] VITALS: BMI 65.0
[2017-05-10] MEDS ORDERED: HYDRALAZINE 20 MG/ML INJECTION IVP PRN (15:59)
[2017-05-10] MEDS: ACETAMINOPHEN 500 MG TABLET PO SCH ×2 (16:45→21:15)
[2017-05-10] MEDS: LISINOPRIL 40 MG TABLET PO SCH (16:45)
[2017-05-10] MEDS: NS 1,000 ML IV SCH (16:46)
[2017-05-10] MEDS ORDERED: WARFARIN 5 MG TABLET PO ONE (16:49)
--- NOTE | 2017-05-10 16:51 | Pharmacy Consult ---
Pharmacy Consult-Warfarin - Consult Information We will begin this patient with warfarin 10mg p.o. now. Routine monitoring of INR for a target range of 2.0 - 3.0 for P.E. Thanks
[2017-05-10] MEDS ORDERED: ENOXAPARIN 80 MG/0.8 ML INJECTION SQ SCH (21:00)
[2017-05-11] MEDS: ACETAMINOPHEN 500 MG TABLET PO SCH ×4 (00:51→11:39)
[2017-05-11] MEDS: NS 1,000 ML IV SCH ×2 (03:11→13:01)
--- NOTE | 2017-05-11 07:58 | Pharmacy Consult ---
Pharmacy Consult-Warfarin - Laboratory Information 05/11/17 01:16 INR 1.21 - Consult Information This 42 yo patient has PE. The patient's weight is 217 kg. Date INR Dose 05/10 1.18 10 mg 05/11 1.21 Plan 10 mg He received Warfarin 10 mg yesterday so I'm giving another 10 mg today. Need to continue the Enoxaparin 150 mg sq q12h. The pharmacy will continue to monitor the INR's and adjust the warfarin accordingly. Thanks for the Warfarin Protocol
[2017-05-11] MEDS: LISINOPRIL 40 MG TABLET PO SCH (08:28)
[2017-05-11] MEDS: ENOXAPARIN 80 MG/0.8 ML INJECTION SQ SCH ×2 (08:29→21:37)
[2017-05-11] MEDS: ENOXAPARIN 150 MG/ML INJECTION SQ SCH ×2 (08:29→21:37)
--- NOTE | 2017-05-11 08:54 | Ultrasound Report ---
Indication: abn d-Dimer; probable PE PROCEDURE: US venous doppler LE BI: Encounter: Initial Comparison: None Technique: Color Doppler duplex and grayscale sonographic imaging of both lower extremities was performed. Findings: Exam is limited due to patient body habitus and acoustic windows. Possible thrombus in the left distal popliteal vein which is difficult to visualize. There is no evidence for acute deep venous thrombosis in the right thigh. Specifically, serial graded compression was performed from the inguinal ligament to the popliteal bifurcation, bilaterally, demonstrating appropriate compressibility of the remaining deep venous system. In addition, color and pulsed Doppler demonstrate appropriate spontaneous flow, variation with respiration, and augmentation with calf compression. At the ankle, normal flow is identified in the posterior tibial veins; these vessels are also normal in caliber. Impression: 1. Possible DVT in the left popliteal vein which is suboptimally seen. 2. No evidence of acute DVT in the right lower limb. There is a preliminary report by [facility]. .
[2017-05-11] MEDS ORDERED: SALINE FLUSH 10ml SYRINGE ONE (10:55)
[2017-05-11] MEDS ORDERED: IOHEXOL 350mg/ml 100ml INJECTION ONE (10:55)
[2017-05-11] MEDS ORDERED: WARFARIN 5 MG TABLET PO SCH (12:00)
[2017-05-11] MEDS ORDERED: ONDANSETRON ODT 4 MG TABLET PO PRN (12:01)
--- NOTE | 2017-05-11 14:05 | CT Scan Report ---
Indication: CARDONA, elevated d-dimer PROCEDURE: CT angio pulm emb/aorta chest: Encounter: Initial Technique: Axial CT angiography in the systemic arterial phase was performed through the chest with contrast. Noncontrast axial CT imaging through the chest was also performed. Coronal and sagittal MIP reconstructed images were created and reviewed. Three-dimensional surface shaded volume rendered imaging of the aorta and arterial vasculature was created by the technologist on a dedicated workstation under the direction of the interpreting radiologist and reviewed. Axial CT angiography through the chest was also performed in the pulmonary arterial phase with coronal and sagittal MIP reconstructed images created and reviewed. Automated Exposure Control and Iterative Reconstruction dose reducing techniques were utilized. Contrast: 120mL Omnipaque 350 Comparison: CT angiogram of the chest dated May 10, 2017 Findings: CT angiogram of the chest for PE: Pulmonary arteries: Exam is severely limited due to patient body habitus. This creates a severe amount of attenuation artifact. There is a large amount of thrombus in the distal right main pulmonary artery extending into the interlobar pulmonary artery and segmental pulmonary arteries of the right upper and lower lobes. There is also segmental thrombus in the left upper lobe and segmental and subsegmental emboli in the left lower lobe. Other findings: Patchy groundglass airspace opacities are again noted in the right lung and slightly improved. Large calcified granuloma in the right upper lobe again noted. No pleural effusion. Bilateral posterior diaphragmatic defects. No pneumothorax. The central airways are patent. No axillary or mediastinal lymphadenopathy. Heart size is normal. No pericardial effusion. The upper abdomen is poorly evaluated given the severe attenuation artifact present. CT angiogram of the chest for aorta: Noncontrast images show no evidence of intramural hematoma. Postcontrast images show no evidence of aortic aneurysm or dissection. Pulmonary emboli are noted bilaterally and described on the CT angiogram report. Bone windows show no acute findings. Impression: CT angiogram of the chest for PE: Large amount of bilateral pulmonary emboli, greatest in the distal right main pulmonary artery. Right upper lobe groundglass opacities could represent pulmonary hemorrhage or infection. CT angiogram of the chest for aorta: No evidence of acute aortic syndrome. Results were called to the ordering physician at 1400 on May 11, 2017. .
[2017-05-11] MEDS: SALINE FLUSH 10ml SYRINGE IVF PRN (14:11)
[2017-05-11] MEDS ORDERED: ACETAMINOPHEN 500 MG TABLET PO PRN (14:50)
--- NOTE | 2017-05-11 15:08 | Progress Note ---
- Date 05/11/17 Subjective: Obdulio is seen this afternoon in follow up. He is sitting up in the chair and is on room air without distress at rest. He reports with minimal exertion he feels dyspneic. Ambulatory saturation decreased to 79-82%. He denies having chest pain , abdominal pain or nausea. Appetite good no difficulty with urination or bowel movements. Objective Vital signs: Temperature 96.8 F 05/11/17 08:00 Pulse Rate 98 05/11/17 08:00 Respiratory Rate 18 05/11/17 08:00 Blood Pressure 152/83 H 05/11/17 08:00 Pulse Oximetry 93 05/11/17 09:00 Height/Weight/BMI: Height 1.83 m Weight 218.6 kg Body Mass Index 65.0 - Constitutional Present: well nourished, well developed, morbidly obese - Routine HEENT Exam Eye: Present: EOMI ENT: Present: mucous membranes moist, dentition normal - Routine Respiratory Exam Present: CTA bilaterally. Absent: wheezes - Routine Cardiovascular Exam Present: RRR, S1, S2. Absent: murmur - Routine Abdominal Exam Present: soft, normoactive bowel sounds, non distended. Absent: tenderness - Routine Extremities Exam Present: edema (chronic lower ext), full ROM - Routine Skin Exam Present: intact, dry, warm - Routine Neurological Exam Present: alert, oriented X3, CN II-XII intact, moving all extremities - Routine Lymphatic Exam Lymphatic: Absent: adenopathy - Routine Psychiatric Exam Present: cooperative Results - Labs CBC & Chem 7: 05/10/17 13:24 05/11/17 01:16 Assessment and Plan (1) Acute respiratory failure with hypoxia Current visit: Yes Status: Acute (2) Pulmonary embolism Problem details: Bilateral, extensive Current visit: Yes Status: Acute Assessment and Plan: Impression Multiple Bilateral pulmonary emboli Acute hypoxic respiratory failure Hypernatremia- resolved Poorly controlled hypertension Morbid obesity- BMI 64 Plan CTA today revels large amount of bilateral pulmonary emboli Continues on Lovenox 215mg SQ BID with Coumadin per pharmacy protocol Will have patient and teaching to self administer subcutaneous injections ECHO completed and pending Given significant ambulatory hypoxia. We recommend that patient stay again overnight. He is willing to stay however, significantly stressed regarding financial burden. Resuscitation Status: Full Code - Physician Narrative Physician: Nita Pittman MD Narrative: Date: 05/11/17 Time: 1730 I have independently evaluated and examined this patient. I reviewed the chart, the patient's history, and the CALENDER ROLL OPERATOR/PA's documented findings as above. We discussed and formulated the assessment and plan as above with additions as below: Edgardo reports continued exertional dyspnea although he's been minimally ambulatory since admission. He's had no hemoptysis and has weaned off oxygen at rest although desaturated with minimal activity as described above. NAD, alert Respirations nonlabored with good airflow and clear breath sounds Cord like structure palpable lower right calf, I can't appreciate any abnormality in the left calf or popliteal fossa Venous Doppler reviewed-possible DVT in the left distal popliteal vein- suboptimal visualization due to body habitus, no clot reported in the right venous system CTA of the chest reviewed with Dr. Haines and images viewed by myself, extensive right sided DVT with occlusion of the right main pulmonary artery, lesser degrees of PE on the left; calcified granuloma right upper lobe. Groundglass opacity in the right upper lobe possibly representing pulmonary hemorrhage or infection. Clinically no indication of pulmonary infection; INR remains low after 1 day warfarin. Will require 5 day overlap with Lovenox at a minimum. With extensive clot demonstrated I've recommended echocardiogram. Continue inpatient care at this time and reassess oxygenation with ambulation tomorrow given improvement seen thus far with initial treatment. High-risk medications in use. Hospital Course Summary Disclaimer: The visit summary below is not to be considered part of the above Progress Note. Hospital Course: Impression Acute respiratory failure with hypoxia. Elevated d-dimer- 1921 Concern for pulmonary thrombus Hypernatremia- POA Poorly controlled hypertension Morbid obesity- BMI 64 Plan Admit patient Inpatient status under care of Dr. Pittman for acute hypoxia, suspect thrombus Continue on oxygen to maintain adequate saturations Started on treatment dose of Lovenox 215mg SQ BID. Will plan to initiate Coumadin per pharmacy protocol as cost will be a barrier. IV NS at 100ml/hr for hydration Will repeat CT of the chest tomorrow given high suspicion of Pulmonary thrombus Monitor patient on cardiac telemetry and obtain serial troponin 3 Resume Lisinopril 40 mg daily as this was his previous dose. Add IV hydralazine PRN for sustained systolic blood pressure 170. Will obtain Hgb A1C for laboratory completeness Recheck BMP tomorrow to follow electrolytes and renal function Bilateral venous Dopplers being obtained. At time of discharge medical care will return to PCP Leatha Loza APRN 05/11 CTA today revels large amount of bilateral pulmonary emboli Continues on Lovenox 215mg SQ BID with Coumadin per pharmacy protocol Will have patient and teaching to self administer subcutaneous injections ECHO completed and pending Given significant ambulatory hypoxia. We recommend that patient stay again overnight. He is willing to stay however, significantly stressed regarding financial burden.
[2017-05-12] MEDS: ENOXAPARIN 80 MG/0.8 ML INJECTION SQ SCH ×2 (08:31→19:51)
[2017-05-12] MEDS: LISINOPRIL 40 MG TABLET PO SCH (08:31)
[2017-05-12] MEDS: SALINE FLUSH 10ml SYRINGE IVF PRN (08:31)
[2017-05-12] MEDS: ENOXAPARIN 150 MG/ML INJECTION SQ SCH ×2 (08:31→19:52)
--- NOTE | 2017-05-12 10:30 | Pharmacy Consult ---
Pharmacy Consult-Warfarin - Laboratory Information 05/11/17 05/12/17 01:16 04:53 INR 1.21 1.50 H - Consult Information Warfarin Dosing Protocol: This 42 yo patient has PE. The patient's weight is 217 kg. Date INR Dose 05/10 1.18 10 mg 2 1.21 10 mg 1.50 Plan 10 mg He received Warfarin 10 mg yesterday so I'm giving Warfarin 10 mg p.o. today. Need to continue the Enoxaparin 150 mg sq q12h. The pharmacy will continue to monitor the INR's and adjust the warfarin accordingly. Thanks for the Warfarin Protocol
--- NOTE | 2017-05-12 10:52 | Echocardiogram ---
DATE OF PROCEDURE May 11, [address] Joni Pittman This is a two-dimensional echo with spectral Doppler, color-flow and M-mode. It was obtained in a patient with pulmonary embolism. This is a technically difficult study. Left atrial dimension is normal. Left ventricular end-diastolic dimension is normal. Left ventricle wall thickness is mildly increased. LV systolic function is grossly normal with ejection fraction of about 67%. However, all cade were not visualized well. Right atrium appears to be normal. Right ventricle appears to be normal. Aortic root dimension is normal. Mitral valve is morphologically normal. Aortic valve was not visualized well, however, appears to be trileaflet with no stenosis or insufficiency. Tricuspid valve shows trace of tricuspid regurgitation with normal estimated pulmonary artery systolic pressure of 29. Pulmonary valve shows no pulmonary insufficiency. There is no pericardial effusion. IMPRESSION 1. Technically very difficult study. 2. Normal LV systolic function with ejection fraction of about 67%. 3. Mild concentric left ventricular hypertrophy. 4. Trace of tricuspid regurgitation with normal estimated pulmonary artery systolic pressure of 29. MTDD
[2017-05-12] MEDS ORDERED: WARFARIN 5 MG TABLET PO SCH (12:00)
[2017-05-12 16:22] VITALS: PULSE 97; RESP 20; TEMP 97.7; O2SAT 92
--- NOTE | 2017-05-12 17:38 | Discharge Summary ---
Discharge Information Date of admission: 05/10/17 14:50 Anticipated date of discharge: 05/12/17 Attending Physician: Nita Pittman MD Primary care physician: Leatha Ponce APRN - Discharge Diagnosis (1) Acute respiratory failure with hypoxia Status: Acute (2) Pulmonary embolism Status: Acute Multiple Bilateral pulmonary emboli Acute hypoxic respiratory failure Hypernatremia- resolved Poorly controlled hypertension Morbid obesity- BMI 64 Possible left distal popliteal DVT - Procedures Procedures: Echocardiogram on 05/11/17: This is a technically difficult study. Left atrial dimension is normal. Left ventricular end-diastolic dimension is normal. Left ventricle wall thickness is mildly increased. LV systolic function is grossly normal with ejection fraction of about 67%. However, all cade were not visualized well. Right atrium appears to be normal. Right ventricle appears to be normal. Aortic root dimension is normal. Mitral valve is morphologically normal. Aortic valve was not visualized well, however, appears to be trileaflet with no stenosis or insufficiency. Tricuspid valve shows trace of tricuspid regurgitation with normal estimated pulmonary artery systolic pressure of 29. Pulmonary valve shows no pulmonary insufficiency. There is no pericardial effusion. IMPRESSION 1. Technically very difficult study. 2. Normal LV systolic function with ejection fraction of about 67%. 3. Mild concentric left ventricular hypertrophy. 4. Trace of tricuspid regurgitation with normal estimated pulmonary artery systolic pressure of 29. - Laboratory Labs: On admission white count 11.0, hemoglobin 15.1, platelet count 228K, INR 1.18, d -dimer 1921. Sodium 146, creatinine 0.9, proBNP 1170 05/11/17 01:16 INR on date of discharge 1.5 - Radiology Radiology: Chest x-ray on admission demonstrated no acute cardiopulmonary process although moderate degenerative disc disease was described in the thoracic spine. CTA for pulmonary emboli on date of admission revealed: The degree of contrast enhancement is not optimal for detecting pulmonary emboli. There is patchy groundglass opacities in the anterior right upper lobe in the same area as there are some dense calcified granulomas which suggests granulomatous disease also be acute on top of chronic disease. There is no definite ronen mediastinal or hilar adenopathy. No pleural effusion. The trachea and mainstem bronchi are patent. There is no dense consolidation or pneumothorax. There are no masses or nodules seen in the lung parenchyma. There is no axillary, hilar, or mediastinal lymphadenopathy. The heart size is normal. There is no pericardial effusion. The visualized portions of the thoracic aorta and major branch vessels of the aortic arch fills with contrast homogenously and are unremarkable. The visualized portions of the upper abdominal structures are grossly unremarkable. The visualized bones are unremarkable. IMPRESSION: Nonspecific groundglass opacity in the anterior right lung suggesting acute interstitial pneumonitis. Calcific density calcified granulomas and right hilar granulomas suggesting prior granulomatous disease. Insufficient pulmonary artery contrast to exclude or confirm pulmonary embolus. Bilateral lower extremity venous Doppler: Exam is limited due to patient body habitus and acoustic windows. Possible thrombus in the left distal popliteal vein which is difficult to visualize. There is no evidence for acute deep venous thrombosis in the right thigh. Specifically, serial graded compression was performed from the inguinal ligament to the popliteal bifurcation, bilaterally, demonstrating appropriate compressibility of the remaining deep venous system. In addition, color and pulsed Doppler demonstrate appropriate spontaneous flow, variation with respiration, and augmentation with calf compression. At the ankle, normal flow is identified in the posterior tibial veins; these vessels are also normal in caliber. Impression: 1. Possible DVT in the left popliteal vein which is suboptimally seen. 2. No evidence of acute DVT in the right lower limb. CT angiogram of the chest for PE on 05/11/17: Exam is severely limited due to patient body habitus. This creates a severe amount of attenuation artifact. There is a large amount of thrombus in the distal right main pulmonary artery extending into the interlobar pulmonary artery and segmental pulmonary arteries of the right upper and lower lobes. There is also segmental thrombus in the left upper lobe and segmental and subsegmental emboli in the left lower lobe. Other findings: Patchy groundglass airspace opacities are again noted in the right lung and slightly improved. Large calcified granuloma in the right upper lobe again noted. No pleural effusion. Bilateral posterior diaphragmatic defects. No pneumothorax. The central airways are patent. No axillary or mediastinal lymphadenopathy. Heart size is normal. No pericardial effusion. The upper abdomen is poorly evaluated given the severe attenuation artifact present. CT angiogram of the chest for aorta: Noncontrast images show no evidence of intramural hematoma. Postcontrast images show no evidence of aortic aneurysm or dissection. Pulmonary emboli are noted bilaterally and described on the CT angiogram report. Bone windows show no acute findings. Impression: CT angiogram of the chest for PE: Large amount of bilateral pulmonary emboli, greatest in the distal right main pulmonary artery. Right upper lobe groundglass opacities could represent pulmonary hemorrhage or infection. History of Present Illness HPI: Patient is a 42-year-old male who presented to primary care at [facility] and was seen by Leatha Sosa for dyspnea and chest tightness. He was found to be tachycardic and hypoxic at the clinic. He was directed to [facility] emergency room for acute evaluation. On arrival, patient's heart rate was 125-130, room air saturation 66%. Patient was found to have a significantly elevated d-dimer at 1921. A CT of the chest was obtained, however, there was not adequate dye utilized. Therefore pulmonary thrombus could not be excluded. Patient does have a known history of hypertension, however, lost his job as well as his medication coverage and has been off all antihypertensives for the past 4 months. Given continued hypoxia as well as concern for acute thrombus. The hospitalist services were contacted and accepted patient for inpatient admission for further evaluation and treatment. Patient is seen initially while in the emergency room. He is alert, oriented, and pleasant. He describes somewhat sudden onset of shortness of breath and chest pain that started yesterday. He notes that the dyspnea and chest tightness are worse with exertion, however, seemed to improve at rest. Denies any recent illnesses including fevers, chills, abdominal pain or other GI complaints. Objective Vital signs: Temperature 97.7 F 05/12/17 16:21 Pulse Rate 97 05/12/17 16:21 Respiratory Rate 20 05/12/17 16:21 Blood Pressure 110/65 05/12/17 16:21 Pulse Oximetry 92 -RA 05/12/17 16:21 NAD, alert, ambulating in his room without difficulty Respirations nonlabored, good airflow, breath sounds clear-no splinting Regular cardiac rhythm Thickening persists distal right calf, superficial ulceration medial lower right calf Height/Weight/BMI: Height 1.83 m Weight 219.7 kg Body Mass Index 65.0 Hospital Course This is a general summary of the patient's hospital course. For more details refer to the complete medical record. Hospital course: Impression Multiple bilateral pulmonary emboli Acute respiratory failure with hypoxia. Possible left distal up material DVT Hypernatremia- POA Poorly controlled hypertension Morbid obesity- BMI 64 05/10/17-admission Admit patient Inpatient status under care of Dr. Pittman for acute hypoxia, suspect thrombus Continue on oxygen to maintain adequate saturations Started on treatment dose of Lovenox 215mg SQ BID. Will plan to initiate Coumadin per pharmacy protocol-cost will be a barrier for long-term treatment. IV NS at 100ml/hr for hydration Will repeat CT of the chest tomorrow given high suspicion of Pulmonary emboli. Monitor patient on cardiac telemetry and obtain serial troponin 3 Resume Lisinopril 40 mg daily as this was his previous dose. Add IV hydralazine PRN for sustained systolic blood pressure 170. Bilateral venous Dopplers obtained as patient described recent 3-4 hour car trip -could not exclude distal left popliteal thrombus but poor visualization limited interpretation 05/11/17 CTA today revels large amount of bilateral pulmonary emboli including proximal right pulmonary artery thrombus. Continues on Lovenox 220mg SQ BID with Coumadin per pharmacy protocol Will have patient and teaching to self administer subcutaneous injections ECHO completed and pending Rest hypoxia resolved however with ambulation patient desaturates significantly. We recommend that patient stay again overnight. Blood pressure improved with initiation of lisinopril. 05/12/17 Obdulio reports significantly less dyspnea than he experienced given yesterday. He has minor cough. Discomfort he describes in his chest on admission is improving progressively. He denies lightheadedness or leg pain. Oxygen saturation at rest has been 90-93 % on room air. Ambulating on room air oxygen saturation remained 90-91% initially although eventually dropped into the mid 80s. This is significantly improved from yesterday. Cost of oxygen is prohibitive and given progressive improvement and anticipated limited activity I think patient can safely be discharged off oxygen at this time. Echocardiogram unremarkable, PA pressure within normal range. Case management has coordinated Lovenox to be given at the infusion center daily (1.5 mg/kg) at which time INRs can also be drawn and results called Leatha Ponce APRN for adjustment of warfarin dose. He has been advised that he will need at least 3 additional days of Lovenox injections to allow 5 day overlap of warfarin/Lovenox but that it could be longer if INR is not therapeutic at that time. Patient is agreeable with this plan. He has received 2 doses of warfarin thus far and INR has increased to 1.5 after the first 10 mg dose. He'll be discharged with 5 mg tablets of warfarin as I anticipate his chronic dose will be in the 2.5-5 mg per day range. Blood pressure prior to discharge was 110/65 on 40 mg of lisinopril daily. He is asked to follow-up with Leatha Ponce within 1 week. Resuscitation Status: Full Code Discharge Plan - Discharge Disposition Discharge Date: 05/12/17 Disposition: 01 Discharged Home, Self-Care *Condition: Stable Reason For Visit (Visit label in EMR): pulmonary emboli, low oxygen level - Discharge Medications *Discharge Medications: New Lisinopril [Prinivil] 40 mg PO DAILY #30 tab Warfarin [Coumadin] 5 mg PO NOON #30 tab No Action Tamsulosin [Flomax] 0.4 mg PO HS guaiFENesin [Mucinex] 600 mg PO Q12H PRN PRN Reason: Prn Orders HydroCHLOROthiazide [Hydrodiuril] 25 mg PO DAILY Lisinopril [Prinivil] 40 mg PO DAILY - Discharge Packet/Instructions *Diet: Regular/low salt to minimize fluid retention and help with lowering blood pressure *Activity: As tolerate *Pain Management/Treatment: Tylenol as needed-avoid ibuprofen or aspirin while taking blood thinners *Wound Care: Not applicable Additional Instructions: Report to wound care at [facility] (room 114 ) each morning for the next 3 days-may have to be longer depending on INR ( warfarin test) to have Lovenox shot given and to have INR drawn. Leatha or someone from the [place] office will contact you regarding the INR and what dose of warfarin to take that day. *Expected Signs/Symptoms: Shortness of breath with activities *Notify Physician if: Bleeding, dizziness, passing out *During Business Hours Contact: Leatha Ponce's office at [phone] *After Business Hours Contact: Call [facility] at [phone] and ask that the on-call physician be paged *Pending Lab/Results: No Pending Lab - Referrals/Follow Up *Referrals/Follow Up: Leatha Ponce APRN [Family Provider] - 1 Week - Patient Handouts Patient Handouts: Warfarin (By mouth) (Coumadin, Jantoven), Enoxaparin (By injection) (Lovenox), Pulmonary Embolism (DC), Hypoxia (GEN) - Dismissal Complete Discharge Instructions are:: Complete Physician Narrative - Narrative Attestation Narrative: Date: 05/12/17 Time: 4464
[2017-05-12 19:50] VITALS: BP 137/75
== END 2017-05-12 20:01 | disposition home or self-care (01) | DRG 175 ==
LOC: ED 12:55 → MED 14:50
PROVIDERS: ADMIT Internal Medicine; ATTEND Internal Medicine